=== PATIENT | male | born 1960 | race Caucasian/White ===

== ENCOUNTER 2017-02-06 11:44 | Emergency (ER) | payer MEDICAID ==
[2017-02-06 12:00] VITALS: TEMP 98.4
[2017-02-06] MEDS ORDERED: LORazepam 2 MG/ML INJ ONE (12:01)
[2017-02-06] MEDS ORDERED: NS 1,000 ML IV ONE (12:04)
[2017-02-06 12:16] LABS: % IMMATURE GRANULYOCYTES 0.2 % (0.0-1.1); ABSOLUTE IMMATURE GRANULOCYTES 0.01 10^3/uL (0.00-0.10); ADD DIFF? NO; ADD MORPH? NO; ADD SCAN? NO; ATYPICAL LYMPHOCYTE FLAG 20 (0-99); FRAGMENT RBC FLAG 0 (0-99); HEMATOCRIT 44.5 % (40.0-51.0); LEFT SHIFT FLG 0 (0-99); LIPEMIA HEMOLYSIS FLAG 80 (0-99); MEAN CELL HEMOGLOBIN 32.5 pg (27.9-34.1); MEAN CELL HEMOGLOBIN CONCENTR. 33.7 g/dL (32.4-36.7); MEAN CELL VOLUME 96.5 fL (81.5-99.8); MEAN PLATELET VOLUME 9.1 fL (8.7-11.7); PLATELET CLUMPS FLAG 0 (0-99); PLATELET COUNT 198 10^3/uL (150-400); RED BLOOD CELL COUNT 4.61 10^6/uL (4.40-6.38); RED CELL DISTRIBUTION WIDTH 12.6 % (11.5-15.2)
[2017-02-06 12:34] LABS: ANION GAP 5 mEq/L (8-16); CALCIUM 9.3 mg/dL (8.5-10.4); CARBON DIOXIDE 26 mEq/l (22-31); CHLORIDE 110 mEq/L (97-110); CREATININE 0.9 mg/dL (0.7-1.3); GLOMERULAR FILTRATION RATE > 60; GLUCOSE 84 mg/dL (70-100); POTASSIUM 4.1 mEq/L (3.5-5.2); SODIUM 141 mEq/L (134-144)
[2017-02-06 12:40] VITALS: BP 133/67; PULSE 54; RESP 18; O2SAT 93
--- NOTE | 2017-02-06 12:40 | EDPHY ---
H & P Stated Complaint: Witnessed SZ x 3 Time Seen by Provider: 02/06/17 11:57 HPI/ROS: CHIEF COMPLAINT: Seizure x3 HISTORY OF PRESENT ILLNESS: The patient is brought in by paramedics after history of having 3 witnessed seizures. The patient arrives and is postictal. He is unable to provide additional history. Paramedics report that the patient did not sustain a significant traumatic injury. The patient initially wanted to refuse transfer to the hospital however had a recurrent seizure. He was unable to competently refuse and brought to the ED for further evaluation. REVIEW OF SYSTEMS: A comprehensive 10 point review of systems is otherwise negative aside from elements mentioned in the history of present illness. Exam Limitations: Clinical condition - Personal History Current Tetanus Diphtheria and Acellular Pertussis (TDAP): Unsure - Medical/Surgical History Other PMH: Past medical history: Seizure disorder - Social History Smoking Status: Unknown if ever smoked - Physical Exam Exam: General Appearance: Alert, postictal, no acute distress, withdrawals to pain Eyes: Pupils equal and round no pallor or injection ENT, Mouth: Mucous membranes moist Respiratory: There are no retractions, lungs are clear to auscultation Cardiovascular: Regular rate and rhythm Gastrointestinal: Abdomen is soft and nontender, no masses, bowel sounds normal Neurological: Alert, nonverbal, presumably postictal, withdrawals to pain all 4 extremities Skin: Warm and dry, no rashes Musculoskeletal: Neck is supple nontender Extremities: symmetrical, full range of motion Constitutional: Initial Vital Signs Temperature (C) 36.9 C 02/06/17 11:57 Heart Rate 47 L 02/06/17 11:57 Respiratory Rate 18 02/06/17 11:57 Blood Pressure 130/91 H 02/06/17 11:57 O2 Sat (%) 94 02/06/17 11:57 O2 Delivery Mode Room Air Allergies/Adverse Reactions: No Known Allergies Allergy (Unverified 02/06/17 12:37) Home Medications: Medication Instructions Recorded LEVETIRACETAM 1,000 mg PO TID 02/06/17 OXcarbazepine 300 - 600 mg PO BID 02/06/17 Medical Decision Making ED Course/Re-evaluation: The patient presents to the emergency department after a reported history of 3 seizures. The patient's vital signs are noted to be stable. He is afebrile. His laboratory studies are unremarkable. The patient did have serial examinations in the ED over a 1 hour period. The patient is now alert and oriented x4 at 12:45 p.m.. Patient is adamantly of refusing further workup. He currently is taking Keppra for his seizure condition. The patient does have a regular primary care provider he can follow up with. The patient is noted to be neurologically intact. He has a competent decision maker and is able to articulate the risks and benefits of discharged from the emergency department especially in light of his 3 seizures today. The patient had no evidence of status epilepticus throughout his evaluation in the ED. Differential Diagnosis: Differential diagnosis considered includes epilepsy, status epilepticus, metabolic abnormality, hypoglycemia - Data Points Laboratory Results: Laboratory Results 02/06/17 12:05 02/06/17 12:05 02/06/17 02/06/17 12:05 12:05 WBC 5.36 10^3/uL 10^3/uL (3.80-9.50) RBC 4.61 10^6/uL 10^6/uL (4.40-6.38) Hgb 15.0 g/dL g/dL (13.7-17.5) Hct 44.5 % % (40.0-51.0) MCV 96.5 fL fL (81.5-99.8) MCH 32.5 pg pg (27.9-34.1) MCHC 33.7 g/dL g/dL (32.4-36.7) RDW 12.6 % % (11.5-15.2) Plt Count 198 10^3/uL 10^3/uL (150-400) MPV 9.1 fL fL (8.7-11.7) Neut % (Auto) 50.6 % % (39.3-74.2) Lymph % (Auto) 40.1 % % (15.0-45.0) [place] % (Auto) 6.3 % % (4.5-13.0) Eos % (Auto) 1.9 % % (0.6-7.6) Baso % (Auto) 0.9 % % (0.3-1.7) Nucleat RBC Rel Count 0.0 % % (0.0-0.2) Absolute Neuts (auto) 2.71 10^3/uL 10^3/uL (1.70-6.50) Absolute Lymphs (auto) 2.15 10^3/uL 10^3/uL (1.00-3.00) Absolute Monos (auto) 0.34 10^3/uL 10^3/uL (0.30-0.80) Absolute Eos (auto) 0.10 10^3/uL 10^3/uL (0.03-0.40) Absolute Basos (auto) 0.05 10^3/uL 10^3/uL (0.02-0.10) Absolute Nucleated RBC 0.00 10^3/uL 10^3/uL (0-0.01) Immature Gran % 0.2 % % (0.0-1.1) Immature Gran # 0.01 10^3/uL 10^3/uL (0.00-0.10) Sodium 141 mEq/L mEq/L (134-144) Potassium 4.1 mEq/L mEq/L (3.5-5.2) Chloride 110 mEq/L mEq/L (97-110) Carbon Dioxide 26 mEq/l mEq/l (22-31) Anion Gap 5 mEq/L L mEq/L (8-16) BUN 23 mg/dL mg/dL (7-23) Creatinine 0.9 mg/dL mg/dL (0.7-1.3) Estimated GFR > 60 Glucose 84 mg/dL mg/dL (70-100) Calcium 9.3 mg/dL mg/dL (8.5-10.4) Medications Given: Discontinued Medications Sodium Chloride (Ns) 1,000 mls @ 0 mls/hr IV ONCE ONE PRN Reason: Wide Open Stop: 02/06/17 12:05 Last Admin: 02/06/17 12:07 Dose: 1,000 mls Departure - Departure Disposition: Home, Routine, Self-Care Clinical Impression: Seizure disorder Condition: Good Instructions: Epilepsy (ED) Additional Instructions: 1. You have declined additional evaluation in the emergency department today. Please return to the ED for any recurrent seizure, headache, numbness, weakness or other concerns. 2. Please follow up with your regular physician as scheduled.
== END 2017-02-06 12:57 | disposition home or self-care (01) ==
LOC: EDBD 11:44
DX: G40.909 Epilepsy, unspecified, not intractable, without status epilepticus (principal)
CPT/HCPCS: J2060